=== PATIENT | female | born 1955 | race Caucasian/White ===

== ENCOUNTER 2017-08-28 18:32 | Emergency (ER) | payer BC, SELFPAY ==
[2017-08-28 19:33] VITALS: BP 113/78; PULSE 98; RESP 22; TEMP 36.8; O2SAT 100; BMI 22.8
--- NOTE | 2017-08-28 20:51 | HMH.EDUTC ---
[facility] [place] Disposition Clinical Impression: Sternal pain Vomiting Qualifiers: Vomiting type: unspecified Vomiting Intractability: unspecified Nausea presence: with nausea Qualified Code(s): R11.2 - Nausea with vomiting, unspecified Migraine Qualifiers: Migraine type: unspecified Disposition: Still a Patient Condition on Discharge: Fair Time of Disposition: 20:55 (Transfer to ER rm 4) Medical Decision Making Vital Signs: 08/28/17 19:33 Temperature 98.2 F Temperature Source Temporal Artery Scan Pulse Rate [Right] 98 H Respiratory Rate 22 Blood Pressure [Right Arm] 113/78 Blood Pressure Mean [Right Arm] 89 Blood Pressure Source [Right Arm] Automatic Cuff Blood Pressure Position [Right Arm] Sitting 02 Sat by Pulse Oximetry 100 Oxygen Delivery Method Room Air - Aric Inquiry Pt receiving controlled substance: No - Reevaluation(s) Time: 20:40 Reevaluation #1: Discussed symptoms, exam, possible differentials and workup with patient. offered treatment with toradol and phenergan then reevaluating but pt reports this is not her typical migraine, I am lifeless . We discussed transfer to ER and pt much more agreeable with that POC. Report called to Vicky. Discussed my concerns regarding viral vs migraine vs neuro vs cardiac. Room 4 available. [facility] [place] HPI - General Stated complaint: congestion,fever Time Seen by Provider: 08/28/17 20:35 Mode of Arrival: Ambulatory Source of Information: Patient Limitations: No Limitations Description of Symptoms (Recalled from Triage Doc. by RN): N/V HEADACHE BEGAN YESTERDAY HEENT Symptoms (Recalled from RN notes): No Resp Symptoms (Recalled from RN notes): No Skin Symptoms (Recalled from RN notes): No MS Symptoms (Recalled from RN notes): No Functional Status (Recalled from RN notes): N - History of Present Illness Provider Complaint: c/o vomiting and headache. Started late Sunday/early sunday at 2am. Not sure what came first, N/V or headache. Hx of migraines. Reports not typically this bad, currently 9/10, and not currently accompanied w/ prolonged vomiting. Reports weakness that started quickly when symptoms started but today, feeling weaker and that is why she came in. Vomiting 2-4 times a day with constant nausea. Denies abdominal pain, cramping, diarrhea. No fever. severe sternal chest pain yesterday that she dismissed as indigestion. Eventually resolved after lots of hours without treatment. Denies cardiac hx but reports BP has been elevated more lately. under more stress right now. Family hx of heart disease and MIs everyone on my side . No treatment for any symptoms since onset. - Related Data Home Medications Medication Instructions Recorded Confirmed No Known Home Medications [No 08/28/17 08/28/17 Known Home Medications] Allergies Allergy/AdvReac Type Severity Reaction Status Date / Time No Known Allergies Allergy Verified 08/28/17 19:41 - Worker's Comp Is this a Worker's Comp case?: No [facility] History I have reviewed the patient's past medical history: Yes (denies PMHx) Laterality Cases: Bilateral: Tonsillectomy Other Surgeries: Yes: Tubal Ligation - *Social History Smoking Status: Never smoker Alcohol Intake: never - Psychiatric History Expresses thoughts of harming self/others: None Suicide Plan Description: No Plan ROS Obtained: Yes Systems reviewed as appropriate & no additional complaints - Constitutional Constitutional: Reports as per HPI, Reports fatigue, Reports poor appetite (ate only banana in 2 days, sips of water is all she can tolerate), Reports lethargy, Reports weakness - Eyes Eyes: Denies change in vision, Denies eye pain, Reports photophobia - ENT Ears, Nose, Mouth, and Throat: Denies otalgia, Denies nasal congestion, Denies nasal discharge, Denies sore throat - Cardiovascular Cardiovascular: Reports as per HPI, Denies dyspnea, Denies dyspnea on exertion, Denies leg edema - Respiratory Respiratory: No cough
--- NOTE | 2017-08-28 20:55 | ED_ITS ---
[facility] [place] Disposition Clinical Impression: Sternal pain Vomiting Qualifiers: Vomiting type: unspecified Vomiting Intractability: unspecified Nausea presence : with nausea Qualified Code(s): R11.2 - Nausea with vomiting, unspecified Migraine Qualifiers: Migraine type: unspecified Disposition: Still a Patient Condition on Discharge: Fair Time of Disposition: 20:55 (Transfer to ER rm 4) Medical Decision Making Vital Signs: 08/28/17 19:33 Temperature 98.2 F Temperature Source Temporal Artery Scan Pulse Rate [Right] 98 H Respiratory Rate 22 Blood Pressure [Right Arm] 113/78 Blood Pressure Mean [Right Arm] 89 Blood Pressure Source [Right Arm] Automatic Cuff Blood Pressure Position [Right Arm] Sitting 02 Sat by Pulse Oximetry 100 Oxygen Delivery Method Room Air - Aric Inquiry Pt receiving controlled substance: No - Reevaluation(s) Time: 20:40 Reevaluation #1: Discussed symptoms, exam, possible differentials and workup with patient. offered treatment with toradol and phenergan then reevaluating but pt reports this is not her typical migraine, I am lifeless . We discussed transfer to ER and pt much more agreeable with that POC. Report called to Vicky. Discussed my concerns regarding viral vs migraine vs neuro vs cardiac. Room 4 available. [facility] [place] HPI - General Stated complaint: congestion,fever Time Seen by Provider: 08/28/17 20:35 Mode of Arrival: Ambulatory Source of Information: Patient Limitations: No Limitations Description of Symptoms (Recalled from Triage Doc. by RN): N/V HEADACHE BEGAN YESTERDAY HEENT Symptoms (Recalled from RN notes): No Resp Symptoms (Recalled from RN notes): No Skin Symptoms (Recalled from RN notes): No MS Symptoms (Recalled from RN notes): No Functional Status (Recalled from RN notes): N - History of Present Illness Provider Complaint: c/o vomiting and headache. Started late Sunday/early sunday at 2am. Not sure what came first, N/V or headache. Hx of migraines. Reports not typically this bad, currently 9/10, and not currently accompanied w/ prolonged vomiting. Reports weakness that started quickly when symptoms started but today , feeling weaker and that is why she came in. Vomiting 2-4 times a day with constant nausea. Denies abdominal pain, cramping, diarrhea. No fever. severe sternal chest pain yesterday that she dismissed as indigestion. Eventually resolved after lots of hours without treatment. Denies cardiac hx but reports BP has been elevated more lately. under more stress right now. Family hx of heart disease and MIs everyone on my side . No treatment for any symptoms since onset. - Related Data Home Medications Medication Instructions Recorded Confirmed No Known Home Medications [No 08/28/17 08/28/17 Known Home Medications] Allergies Allergy/AdvReac Type Severity Reaction Status Date / Time No Known Allergies Allergy Verified 08/28/17 19:41 - Worker's Comp Is this a Worker's Comp case?: No H History I have reviewed the patient's past medical history: Yes (denies PMHx) Laterality Cases: Bilateral: Tonsillectomy Other Surgeries: Yes: Tubal Ligation - *Social History Smoking Status: Never smoker Alcohol Intake: never - Psychiatric History Expresses thoughts of harming self/others: None Suicide Plan Description: No Plan ROS Obtained: Yes Systems reviewed as appropriate & no add
[2017-08-28 20:59] VITALS: BP 136/80; PULSE 81; RESP 16; TEMP 37.1; O2SAT 94; BMI 22.8
[2017-08-28 21:55] LABS: Basophils % 0.2 % (0.1-2.0); Eosinophils # 0.1 K/mm3 (0.0-0.4); Eosinophils % 1.1 % (0.1-12.0); Hematocrit 43.1 % (37.0-47.0); Lymphocytes # 0.7 K/mm3 (0.7-4.5); Lymphocytes % 12.3 K/mm3 (10-50); Mean Corpuscular HGB Conc 34.8 g/dL (31.8-35.4); Mean Corpuscular Hemoglobin 31.9 pg (27.0-31.2); Mean Corpuscular Volume 91.5 fl (81-99); Mean Platelet Volume 7.2 fl (7.4-10.4); Monocytes # 0.3 K/mm3 (0.1-1.0); Monocytes % 4.5 % (1.7-9.3); Neutrophils # 4.5 K/mm3 (1.8-7.8); Neutrophils % 81.9 % (37.0-80.0); Platelet Count 163 K/mm3 (142-424); Red Blood Count 4.71 M/mm3 (4.20-5.40); Red Cell Distribution Width 12.2 % (11.5-17.5); White Blood Count 5.4 K/mm3 (4.8-10.8)
[2017-08-28 22:01] LABS: Alanine Aminotransferase 34 U/L (12-78); Albumin Level 3.4 gm/dL (3.4-5.0); Albumin/Globulin Ratio 0.9 (1.1-1.8); Alkaline Phosphatase 84 U/L (46-116); Anion Gap 13.5 mEq/L (5-15); Aspartate Amino Transferase 24 U/L (15-37); Bilirubin,Total 0.3 mg/dL (0.2-1.0); Blood Urea Nitrogen 14 mg/dL (7-18); Calcium 8.5 mg/dL (8.5-10.1); Carbon Dioxide 23 mmol/L (21.0-32.0); Chloride 96 mmol/L (98-107); Creatinine Clearance Estimated 63 mL/min (0-300); Creatinine,Serum 0.69 mg/dL (0.55-1.02); Estimated Glomerular Filt Rate 86 ml/min (>60); GFR (African American) 104 ML/MIN (>60); Globulin 3.8 gm/dl (1.3-3.2); Glucose 120 mg/dL (74-106); Potassium 3.5 mmoL/L (3.5-5.1); Sodium 129 mmol/L (136-145); Total Protein,Serum 7.2 gm/dL (6.4-8.2)
--- NOTE | 2017-08-28 22:10 | HMH.EDNVD ---
ED Disposition Clinical Impression: Vomiting Qualifiers: Vomiting type: unspecified Vomiting Intractability: unspecified Nausea presence: with nausea Qualified Code(s): R11.2 - Nausea with vomiting, unspecified UTI (urinary tract infection) Qualifiers: Urinary tract infection type: acute cystitis Hematuria presence: without hematuria Qualified Code(s): N30.00 - Acute cystitis without hematuria Headache Qualifiers: Headache type: unspecified Headache chronicity pattern: unspecified pattern Intractability: not intractable Qualified Code(s): R51 - Headache Disposition: Home, Self-Care Condition on Discharge: Good Instructions: DI for Nausea -- Adult Additional Instructions: fluids and see pcp for follow up Prescriptions: cephALEXin [Keflex 500mg Cap] 500 mg PO Q8H #30 cap - Critical Care Critical Care Time: No Attestation: On 08/28/17, the high probability of a clinically significant, sudden or life threatening deterioration of the following system(s) required my full and direct attention, intervention and personal management. The time I documented below is in addition to time spent performing reported procedures but includes the following listed in this critical care notation. Medical Decision Making - Medical Records Medical records reviewed: Yes: I reviewed the patient's medical records. Vital Signs: 08/28/17 19:33 08/28/17 20:59 08/28/17 22:11 Temperature 98.2 F 98.7 F 98.8 F Temperature Source Temporal Artery Scan Oral Oral Pulse Rate [Right] 98 H 81 82 Respiratory Rate 22 16 22 Blood Pressure [Right Arm] 113/78 136/80 132/76 Blood Pressure Mean [Right Arm] 89 98 94 Blood Pressure Source [Right Arm] Automatic Cuff Automatic Cuff Automatic Cuff Blood Pressure Position [Right Arm] Sitting Supine Supine 02 Sat by Pulse Oximetry 100 94 L 93 L Oxygen Delivery Method Room Air Room Air Room Air 08/28/17 22:49 08/28/17 23:44 Temperature Temperature Source Pulse Rate [Right] 81 81 Respiratory Rate 20 22 Blood Pressure [Right Arm] 141/68 123/67 Blood Pressure Mean [Right Arm] 92 85 Blood Pressure Source [Right Arm] Automatic Cuff Automatic Cuff Blood Pressure Position [Right Arm] Supine Supine 02 Sat by Pulse Oximetry 99 96 Oxygen Delivery Method Room Air - Lab Data Lab results reviewed: Yes: I reviewed the patient's lab results. Lab Results 08/28/17 21:40: WBC 5.4, RBC 4.71, Hgb 15.0, Hct 43.1, MCV 91.5, MCH 31.9 H, MCHC 34.8, RDW 12.2, Plt Count 163, MPV 7.2 L, Neut % (Auto) 81.9 H, Lymph % (Auto) 12.3, [place] % (Auto) 4.5, Eos % (Auto) 1.1, Baso % (Auto) 0.2, Neut # (Auto) 4.5, Lymph # (Auto) 0.7, [place] # (Auto) 0.3, Eos # (Auto) 0.1, Baso # (Auto) 0.0 08/28/17 21:40: Sodium 129 L, Potassium 3.5, Chloride 96 L, Carbon Dioxide 23, Anion Gap 13.5, BUN 14, Creatinine 0.69, Estimated Creat Clear 63, Estimated GFR 86, Est GFR ( Amer) 104, Glucose 120 H, Calcium 8.5, Total Bilirubin 0.3, AST 24, ALT 34, Alkaline Phosphatase 84, Total Protein 7.2, Albumin 3.4, Globulin 3.8 H, Albumin/Globulin Ratio 0.9 L 08/28/17 21:40: ESR 26 08/28/17 22:30: Urine Color Yellow, Urine Appearance Clear, Urine pH 6.5, Ur Specific [place] 1.015, Urine Protein Trace, Urine Glucose (UA) Negative, Urine Ketones Trace, Urine Blood 2+, Urine Nitrate Negative, Urine Bilirubin Negative, Urine Urobilinogen 0.2, Ur Leukocyte Esterase 2+ A, Urine RBC 5-10, Urine WBC 5-10, Ur Squamous Epith Cells 3-5, Ur Transition Epith Cell Occ, Urine Bacteria 2+, Urine Mucus 3+ Result diagrams: 08/28/17 21:40 08/28/17 21:40 Orders (Tests/Meds): ED MEDICATIONS Discontinued Medications Generic Name Dose Route Start Last Admin Trade Name Freq PRN Reason Stop Dose Admin Sodium Chloride 1,000 mls @ 999 mls/hr 08/28/17 21:15 08/28/17 22:00 Sod Chloride 0.9% 1000ml Bag IV 08/28/17 22:15 999 mls/hr .Q1H1M NISA Administration Lactated Ringer's 1,000 mls @ 999 mls/hr 08/28/17 23:30 08/28/17 23:19 Lactated Ringer's 1000
[2017-08-28 22:11] VITALS: BP 132/76; PULSE 82; RESP 22; TEMP 37.1; O2SAT 93
--- NOTE | 2017-08-28 22:13 | ED_ITS ---
ED Disposition Clinical Impression: Vomiting Qualifiers: Vomiting type: unspecified Vomiting Intractability: unspecified Nausea presence : with nausea Qualified Code(s): R11.2 - Nausea with vomiting, unspecified UTI (urinary tract infection) Qualifiers: Urinary tract infection type: acute cystitis Hematuria presence: without hematuria Qualified Code(s): N30.00 - Acute cystitis without hematuria Headache Qualifiers: Headache type: unspecified Headache chronicity pattern: unspecified pattern Intractability: not intractable Qualified Code(s): R51 - Headache Disposition: Home, Self-Care Condition on Discharge: Good Instructions: DI for Nausea -- Adult Additional Instructions: fluids and see pcp for follow up Prescriptions: cephALEXin [Keflex 500mg Cap] 500 mg PO Q8H #30 cap - Critical Care Critical Care Time: No Attestation: On 08/28/17, the high probability of a clinically significant, sudden or life threatening deterioration of the following system(s) required my full and direct attention, intervention and personal management. The time I documented below is in addition to time spent performing reported procedures but includes the following listed in this critical care notation. Medical Decision Making - Medical Records Medical records reviewed: Yes: I reviewed the patient's medical records. Vital Signs: 08/28/17 19:33 08/28/17 20:59 08/28/17 22:11 Temperature 98.2 F 98.7 F 98.8 F Temperature Source Temporal Artery Scan Oral Oral Pulse Rate [Right] 98 H 81 82 Respiratory Rate 22 16 22 Blood Pressure [Right Arm] 113/78 136/80 132/76 Blood Pressure Mean [Right Arm] 89 98 94 Blood Pressure Source [Right Arm] Automatic Cuff Automatic Cuff Automatic Cuff Blood Pressure Position [Right Arm] Sitting Supine Supine 02 Sat by Pulse Oximetry 100 94 L 93 L Oxygen Delivery Method Room Air Room Air Room Air 08/28/17 22:49 08/28/17 23:44 Temperature Temperature Source Pulse Rate [Right] 81 81 Respiratory Rate 20 22 Blood Pressure [Right Arm] 141/68 123/67 Blood Pressure Mean [Right Arm] 92 85 Blood Pressure Source [Right Arm] Automatic Cuff Automatic Cuff Blood Pressure Position [Right Arm] Supine Supine 02 Sat by Pulse Oximetry 99 96 Oxygen Delivery Method Room Air - Lab Data Lab results reviewed: Yes: I reviewed the patient's lab results. Lab Results 08/28/17 21:40: WBC 5.4, RBC 4.71, Hgb 15.0, Hct 43.1, MCV 91.5, MCH 31.9 H, MCHC 34.8, RDW 12.2, Plt Count 163, MPV 7.2 L, Neut % (Auto) 81.9 H, Lymph % ( Auto) 12.3, [place] % (Auto) 4.5, Eos % (Auto) 1.1, Baso % (Auto) 0.2, Neut # (Auto ) 4.5, Lymph # (Auto) 0.7, [place] # (Auto) 0.3, Eos # (Auto) 0.1, Baso # (Auto) 0.0 08/28/17 21:40: Sodium 129 L, Potassium 3.5, Chloride 96 L, Carbon Dioxide 23, Anion Gap 13.5, BUN 14, Creatinine 0.69, Estimated Creat Clear 63, Estimated GFR 86, Est GFR ( Amer) 104, Glucose 120 H, Calcium 8.5, Total Bilirubin 0.3, AST 24, ALT 34, Alkaline Phosphatase 84, Total Protein 7.2, Albumin 3.4, Globulin 3.8 H, Albumin/Globulin Ratio 0.9 L 08/28/17 21:40: ESR 26 08/28/17 22:30: Urine Color Yellow, Urine Appearance Clear, Urine pH 6.5, Ur Specific [place] 1.015, Urine Protein Trace, Urine Glucose (UA) Negative, Urine Ketones Trace, Urine Blood 2+, Urine Nitrate Negative, Urine Bilirubin Negative , Urine Urobilinogen 0.2, Ur Leukocyte Esterase 2+ A, Urine RBC 5-10, Urine WBC 5-10, Ur Squamous Epith Cells 3
[2017-08-28 22:21] LABS: Adenovirus,PCR Not Detected (NotDetected); Bordetella Pertussis Not Detected (NotDetected); Chlamydophila Pneumoniae, PCR Not Detected (NotDetected); Coronavirus 229E Not Detected (NotDetected); Coronavirus NL63 Not Detected (NotDetected); Coronavirus OC43 Not Detected (NotDetected); Coronovirus HKU1,PCR Not Detected (NotDetected); Human Metapneumovirus Not Detected (NotDetected); Influenza A, PCR Not Detected (NotDetected); Influenza AH1, 2009 Not Detected (NotDetected); Influenza AH1, PCR Not Detected (NotDetected); Influenza AH3,PCR Not Detected (NotDetected); Influenza B, PCR Not Detected (NotDetected); Mycoplasma Pneumoniae, PCR Not Detected (NotDected); Parainfluenza 1, PCR Not Detected (NotDetected); Parainfluenza 2, PCR Not Detected (NotDetected); Parainfluenza 3, PCR Not Detected (NotDetected); Parainfluenza 4, PCR Not Detected (NotDetected); Respiratory Syncytial Virus Not Detected (NotDetected); Rhinovirus/Enterovirus Not Detected (NotDetected)
[2017-08-28 22:38] LABS: Microscopic, Urine URINE MICROSCOPIC (MICROSCOPIC)
[2017-08-28 22:42] LABS: Appearance,Urine CLEAR (Clear); Bilirubin,Urine Negative (Negative); Blood, Urine 2+ (Negative); Color,Urine YELLOW (Yellow); Glucose,Urine (UA) Negative (Negative); Ketones,Urine TRACE (Negative); Leukocyte Esterase,Urine 2+ (Negative); Nitrate,Urine Negative (Negative); PH,Urine 6.5 (5.0-8.5); Protein,Urine TRACE (Negative); Specific Gravity, Urine 1.015 (1.005-1.030); Urobilinogen,Urine 0.2 EU/dl (0.2)
[2017-08-28 22:49] VITALS: BP 141/68; PULSE 81; RESP 20; O2SAT 99
[2017-08-28 23:01] LABS: Erythrocyte Sedimentation Rate 26 mm/hr (0-30)
[2017-08-28 23:01] LABS: Bacteria,Urine 2+ /lpf; Mucus,Urine 3+ /lpf; Transitional Epi Cells,Urine OCC #/lpf (0-3)
[2017-08-28 23:44] VITALS: BP 123/67; PULSE 81; RESP 22; O2SAT 96
[2017-08-29 00:42] VITALS: BP 128/70; PULSE 80; RESP 16; TEMP 37; O2SAT 97
== END 2017-08-29 00:47 | disposition home or self-care (01) ==
LOC: UTC 20:54 → ER 20:56
PROVIDERS: Emergency Provider Emergency Medicine; Family Provider Family Medicine
DX: R11.2 Nausea with vomiting, unspecified (principal); R51 Headache; N30.00 Acute cystitis without hematuria; Z79.899 Other long term (current) drug therapy
CPT/HCPCS: 80053; 81001; 85025; 85651; 87086; 87088; 87186; 87486; 87581; 87633; 87798; 96365; 96367; 96375; 99284

== ENCOUNTER → 2023-07-03 07:31 | Outpatient (CLI) | payer BC, SELFPAY ==
--- NOTE | 2023-07-03 07:37 | CT_ITS ---
FINAL REPORT TECHNIQUE: Noncontrast CT exam of the abdomen and pelvis. This study was performed with techniques to keep radiation doses as low as reasonably achievable (ALARA). Individualized dose reduction techniques using automated exposure control or adjustment of mA and/or kV according to the patient''s size were employed. CLINICAL HISTORY: . HEMATURIA FINDINGS: Abdomen: Lung bases are clear. Liver, spleen, pancreas and adrenal glands have a normal CT appearance in their limited unenhanced state. The kidneys show no stone disease or obstruction. No obvious renal mass is present. No ureteral stones are present. Pelvis: No distal ureteral stones are seen. Bladder is unremarkable. No fluid collection or adenopathy is seen. Hysterectomy. Normal appendix. IMPRESSION: No evidence of upper urinary tract stone disease or obstruction. Reviewed, Interpreted and Dictated by Callie Morales MD Transcribed by Joel Ly Authenticated and [facility]
== END ==
PROVIDERS: PCP Family Medicine; Visit Provider Family Medicine
DX: R31.29 Other microscopic hematuria (principal)
CPT/HCPCS: 74176

== ENCOUNTER 2024-06-03 12:23 | Outpatient (CLI) | payer MEDICARE, SELFPAY ==
--- NOTE | 2024-06-03 12:38 | MR_ITS ---
PROCEDURE INFORMATION: Exam: MR Left Lower Extremity Joint Without Contrast; Hip Exam date and time: 06/03/2024 1:31 PM Age: 68 years old Clinical indication: Patient HX: Left hip pain more towards spine; Additional info: Lft hip pain TECHNIQUE: Imaging protocol: Magnetic resonance imaging of the left lower extremity joint without contrast. Exam focused on the hip. COMPARISON: CT ABDOMEN PELVIS WO CON 07/03/2023 7:36 AM FINDINGS: Bones/joints: Spurring is identified at the pubic symphysis. No visualized acute marrow edema, acute fracture, or dislocation of the left hip. There is a band of fluid signal intensity in the region of the left sacrotuberous ligament measuring 6.1 x 0.9 x 0.8 cm. A ganglion cyst is suggested. Pudendal nerve entrapment cannot be excluded. No significant hip joint effusions bilaterally. There is narrowing of the bilateral hip joint spaces bilaterally and superiorly, consistent with mild arthropathy. Osseous cystic change is seen within the lateral aspect of the superior right acetabulum. There is a linear focus of T1 hypointensity within the inferior aspect of the left femoral head. This is a symmetric finding compared to the right side, without acute marrow edema. Labrum: There is a linear focus of increased PD signal intensity involving the anterior superior aspect of the left hip labrum, consistent with a cleft or tear. See below. Periarticular cysts: A multiloculated cystic collection of fluid is visualized lateral to the superior right acetabulum, consistent with a paralabral cyst. This measures 1.5 x 0.8 x 1.7 cm. This can be associated with labral injury, although evaluation of the right hip labrum is limited. TENDONS: Tendons of iliopsoas group: Unremarkable. No evidence of tear. Tendons of medial compartment of thigh: No evidence of tear. Tendons of lateral rotators of hip: No evidence of tear. Tendons of gluteal group: A small amount of fluid is identified lateral to the left greater trochanter and adjacent to the gluteus medius tendon. Mild edema is noted adjacent to the gluteus minimus tendon on the left side. These findings are consistent with gluteal tendinopathy/trochanteric bursitis. Soft tissues: See Bones/joints finding. Lymph nodes: Bilateral inguinal lymph nodes are visualized, several which are mildly enlarged. An enlarged left inguinal lymph node measures 2.1 cm in length. These lymph nodes are nonspecific as to etiology. Reproductive: The uterus is absent. IMPRESSION: 1. There is a band of fluid signal intensity in the region of the left sacrotuberous ligament. A ganglion cyst is suggested. Pudendal nerve entrapment cannot be excluded. 2. Left gluteal tendinopathy/trochanteric bursitis. 3. Bilateral hip arthropathy. 4. Right hip paralabral cyst. There is a linear focus of increased PD signal intensity involving the anterior superior aspect of the left hip labrum, consistent with a cleft or tear. 5. Bilateral inguinal lymph nodes are visualized, several which are mildly enlarged. These lymph nodes are nonspecific as to etiology. 6. Additional findings described above.
== END 2024-06-03 23:59 | disposition home or self-care (01) ==
LOC: RAD 12:25
PROVIDERS: PCP Family Medicine; Visit Provider Family Medicine
DX: M25.552 Pain in left hip (principal); R53.1 Weakness
CPT/HCPCS: 73721